=== PATIENT | female | born 1965 | race American Indian/Alaskan Native ===

== ENCOUNTER 2016-11-07 09:27 | Inpatient (IN) | payer SELFPAY ==
[2016-11-07 10:46] LABS: Basophils % (Auto) 0.3 % (0.0-1.8); Eosinophils % (Auto) 2.2 % (0.0-4.3); Hematocrit 44.5 % (30.3-42.9); Hemoglobin 14.3 gm/dl (10.1-14.3); Mean Corpuscular HGB Conc 32 % (30-34); Mean Corpuscular Hemoglobin 31 pg (28-32); Mean Corpuscular Volume 95 fl (79-97); Platelet Count 180 K/mm3 (140-440); Red Blood Count 4.66 M/mm3 (3.65-5.03); Red Cell Distribution Width 13.2 % (13.2-15.2); White Blood Count 5.4 K/mm3 (4.5-11.0)
[2016-11-07 11:04] LABS: Alanine Aminotransferase 10 units/L (7-56); Albumin 4.2 g/dL (3.9-5); Albumin/Globulin Ratio 1.3 %; Alkaline Phosphatase 85 units/L (35-129); Anion Gap 17 mmol/L; BUN/Creatinine Ratio 18.75; Blood Urea Nitrogen 15 mg/dL (7-17); Calcium 9.4 mg/dL (8.4-10.2); Carbon Dioxide 29 mmol/L (22-30); Chloride 98.4 mmol/L (98-107); Glucose 82 mg/dL (65-100); Potassium 3.9 mmol/L (3.6-5.0); Sodium 140 mmol/L (137-145); Total Protein 7.4 g/dL (6.3-8.2)
--- NOTE | 2016-11-07 14:56 | Emergency Department Report ---
ED Chest Pain HPI - General Chief Complaint: Chest Pain Stated Complaint: HIGH BP/HEADACHE Time Seen by Provider: 11/07/16 14:23 Source: patient Mode of arrival: Ambulatory Limitations: No Limitations - History of Present Illness Initial Comments: The patient is quite difficult to extract a history from. However, from what I can ascertain she was admitted in [place] one month ago for chest pain. She states that she was "called back because one doctor thought something was wrong with my chest but then another doctor didn't". It seems like she may have had a CT of her chest at that time. She has not had a cardiac catheterization. She drove from [place] to [place] 3 days ago. She states that since she drove here she has been having intermittent sharp pain of her left arm which occurs more than 5 times a day. She has also had chest pain which is sometimes associated with the arm pain but sometimes not perhaps 3 times a day. She states her episodes of pain did not last very long. When asked to quantify she seems to be saying a few minutes. She states that sometime she has associated symptoms like shortness of breath and nausea but sometimes not. At this time she is not having chest pain and arm pain nor shortness of breath. She denies any pleuritic pain or hemoptysis. She denies any leg pain or swelling. She has not been previously diagnosed with VTE. She states that she had a sister that had an MRI. She is noncompliant with her medicine for hypertension. MD Complaint: chest pain -: Gradual Onset: during rest Pain Location: left chest Pain Radiation: other (sometimes has left arm pain also) Severity: mild, moderate Quality: sharp Consistency: intermittent Improves With: nothing Worsens With: nothing re: nausea, dyspnea Other Symptoms: denies: cough, fever, syncope Treatments Prior to Arrival: none Aspirin use within the Past 7 Days: (0) No - Related Data On Oral Contraceptives: No Previous Rx's Medication Instructions Recorded Last Taken Type ALBUTEROL Inhaler [Proair] 1 puff IH Q4H PRN #1 inha 03/25/16 Unknown Rx Aspirin EC [Aspirin Enteric Coated 81 mg PO QDAY #30 tablet. 03/25/16 Unknown Rx TAB] amLODIPine [Norvasc] 5 mg PO DAILY #30 tab 03/25/16 Unknown Rx Allergies Allergy/AdvReac Type Severity Reaction Status Date / Time Penicillins Allergy Rash Verified 11/07/16 10:19 Heart Score - HEART Score History: Slightly suspicious EKG: Non-specific Age: 45-65 Risk factors: 1-2 risk factors Troponin: < normal limit HEART Score: 3 - Critical Actions Critical Actions: 0-3 pts:0.9-1.7%risk of adverse cardiac event.Candidate for discharge ED Review of Systems ROS: Stated complaint: HIGH BP/HEADACHE Other details as noted in HPI Constitutional: denies: chills, fever Eyes: denies: eye pain, eye discharge, vision change ENT: denies: ear pain, throat pain Respiratory: shortness of breath. denies: cough, wheezing Cardiovascular: chest pain. denies: palpitations Endocrine: no symptoms reported Gastrointestinal: nausea. denies: abdominal pain, diarrhea Genitourinary: denies: urgency, dysuria, discharge Musculoskeletal: denies: back pain, joint swelling, arthralgia Skin: denies: rash, lesions Neurological: denies: headache, weakness, paresthesias Psychiatric: denies: anxiety, depression Hematological/Lymphatic: denies: easy bleeding, easy bruising ED Past Medical Hx - Past Medical History Hx Hypertension: Yes Hx Asthma: Yes - Surgical History Past Surgical History?: No - Social History Smoking Status: Current Every Day Smoker Substance Use Type: Alcohol - Medications Home Medications: Home Medications Medication Instructions Recorded Confirmed Last Taken Type ALBUTEROL Inhaler [Proair] 1 puff IH Q4H PRN #1 inha 03/25/16 Unknown Rx Aspirin EC [Aspirin Enteric Coated 81 mg PO QDAY #30 tablet. 03/25/16 Unknown Rx TAB] amLODIPine [Norvasc] 5 mg PO DAILY #30 tab 03/25/16 Unknown Rx ED Physical Exam - General Limitations: No Limitations General appearance: alert, in no apparent distress - Head Head exam: Present: atraumatic, normocephalic - Eye Eye exam: Present: normal appearance. Absent: scleral icterus - ENT ENT exam: Present: mucous membranes moist - Neck Neck exam: Present: normal inspection. Absent: tenderness, meningismus - Respiratory Respiratory exam: Present: normal lung sounds bilaterally. Absent: respiratory distress - Cardiovascular Cardiovascular Exam: Present: regular rate, normal rhythm. Absent: systolic murmur, diastolic murmur, rubs, gallop - GI/Abdominal GI/Abdominal exam: Present: soft, normal bowel sounds. Absent: distended, tenderness, guarding, rebound, rigid - Extremities Exam Extremities exam: Present: normal inspection - Back Exam Back exam: Present: normal inspection - Neurological Exam Neurological exam: Present: alert, oriented X3, CN II-XII intact. Absent: motor sensory deficit - Psychiatric Psychiatric exam: Present: normal affect, normal mood - Skin Skin exam: Present: warm, dry, intact, normal color. Absent: rash ED Course Vital Signs 11/07/16 11/07/16 11/07/16 10:07 11:58 12:00 Temperature 97.8 F Pulse Rate 58 L 61 66 Respiratory 18 19 15 Rate Blood Pressure 156/92 O2 Sat by Pulse 98 99 99 Oximetry 11/07/16 11/07/16 11/07/16 12:30 13:00 13:30 Temperature Pulse Rate 55 L 58 L 56 L Respiratory 11 L 10 L 14 Rate Blood Pressure 159/81 159/81 147/85 O2 Sat by Pulse 98 99 100 Oximetry 11/07/16 11/07/16 14:00 14:36 Temperature Pulse Rate 56 L Respiratory 15 16 Rate Blood Pressure 170/98 O2 Sat by Pulse 98 99 Oximetry - Reevaluation(s) Reevaluation #1: Discussed with Dr. John. The patient will be admitted to the hospitalist service under Dr. John for further care and evaluation. Bridge orders have been placed. Dr. John will be seeing the patient this afternoon. 11/07/16 15:06 ED Medical Decision Making - Lab Data Result diagrams: 11/07/16 10:28 11/07/16 10:28 Laboratory Results - last 24 hr 11/07/16 11/07/16 11/07/16 10:28 10:28 10:28 WBC 5.4 RBC 4.66 Hgb 14.3 Hct 44.5 H MCV 95 MCH 31 MCHC 32 RDW 13.2 Plt Count 180 Lymph % (Auto) 51.7 H [place] % (Auto) 6.6 Eos % (Auto) 2.2 Baso % (Auto) 0.3 Lymph # 2.8 Forest # 0.4 Eos # 0.1 Baso # 0.0 Seg Neutrophils % 39.2 L Seg Neutrophils # 2.1 Sodium 140 Potassium 3.9 Chloride 98.4 Carbon Dioxide 29 Anion Gap 17 BUN 15 Creatinine 0.8 Estimated GFR > 60 BUN/Creatinine Ratio 18.75 Glucose 82 Calcium 9.4 Total Bilirubin 0.30 AST 14 ALT 10 Alkaline Phosphatase 85 Troponin T < 0.010 Total Protein 7.4 Albumin 4.2 Albumin/Globulin Ratio 1.3 11/07/16 12:56 WBC RBC Hgb Hct MCV MCH MCHC RDW Plt Count Lymph % (Auto) [place] % (Auto) Eos % (Auto) Baso % (Auto) Lymph # Forest # Eos # Baso # Seg Neutrophils % Seg Neutrophils # Sodium Potassium Chloride Carbon Dioxide Anion Gap BUN Creatinine Estimated GFR BUN/Creatinine Ratio Glucose Calcium Total Bilirubin AST ALT Alkaline Phosphatase Troponin T < 0.010 Total Protein Albumin Albumin/Globulin Ratio - EKG Data -: EKG Interpreted by Me EKG shows normal: sinus rhythm, axis, intervals, QRS complexes Rate: bradycardia - EKG Data Interpretation: nonspecific ST-T wave kimberly - Radiology Data interpreted by me: Chest x-ray shows no acute finding Critical care attestation.: If time is entered above; I have spent that time in minutes in the direct care of this critically ill patient, excluding procedure time. ED Disposition Clinical Impression: Uncontrolled hypertension Chest pain Qualifiers: Chest pain type: unspecified Qualified Code(s): R07.9 - Chest pain, unspecified Disposition: 09 OP ADMIT IP TO THIS HOSP Is pt being admited?: Yes Does the pt Need Aspirin: Yes Condition: Stable Instructions: Chest Pain (ED), Hypertension (ED) Referrals: PRIMARY CARE, [Primary Care Provider] - 3-5 Days Time of Disposition: 15:09
[2016-11-07] MEDS ORDERED: NITRO-BID 2% TP ONE ×2 (15:10→16:07)
[2016-11-07] MEDS ORDERED: BABY ASPIRIN PO ONE (15:10)
[2016-11-07 15:27] LABS: INR 0.94 (0.87-1.13)
[2016-11-07 15:28] LABS: Partial Thromboplastin Time 32.4 Sec. (24.2-36.6)
[2016-11-07 15:36] LABS: Alanine Aminotransferase 8 units/L (7-56); Albumin 4.2 g/dL (3.9-5); Albumin/Globulin Ratio 1.4 %; Alkaline Phosphatase 88 units/L (35-129); Total Protein 7.1 g/dL (6.3-8.2)
[2016-11-07 15:39] LABS: Bilirubin,Direct < 0.2 mg/dL (0-0.2); Bilirubin,Indirect 0.2 mg/dL
[2016-11-07] MEDS ORDERED: BABY ASPIRIN ONE (16:08)
--- NOTE | 2016-11-07 16:54 | History and Physical Report ---
History of Present Illness Date of examination: 11/07/16 Date of admission: 11/07/16 14:49 Chief complaint: Chest pain 10 days off and on History of present illness: UNGA:Chest pain off and on for 10 days.Patient is a very poor historian.Patient apparently had chest pain while in [place] and was evaluated in one of the hospitals.Not clear whether she had a stress test.Pain is 6 on 10.Retrosternal and dull in character.No SOB /Diaphoresis/Palpitations.Recent travel from [place] to [place] by car.No fever or chills.Non compliant with meds. - Past Medical History Hx Hypertension: Yes Hx Asthma: Yes - Surgical History Past Surgical History?: No - Social History Smoking Status: Current Every Day Smoker Substance Use Type: Alcohol - Medications Home Medications: Home Medications Medication Instructions Recorded Confirmed Last Taken Type ALBUTEROL Inhaler [Proair] 1 puff IH Q4H PRN #1 inha 03/25/16 Unknown Rx Aspirin EC [Aspirin Enteric Coated 81 mg PO QDAY #30 tablet. 03/25/16 Unknown Rx TAB] amLODIPine [Norvasc] 5 mg PO DAILY #30 tab 03/25/16 Unknown Rx Review of Systems Stated complaint: HIGH BP/HEADACHE Other details as noted in HPI Constitutional: denies: chills, fever Eyes: denies: eye pain, eye discharge, vision change ENT: denies: ear pain, throat pain Respiratory: shortness of breath. denies: cough, wheezing Cardiovascular: chest pain. denies: palpitations Endocrine: no symptoms reported Gastrointestinal: nausea. denies: abdominal pain, diarrhea Genitourinary: denies: urgency, dysuria, discharge Musculoskeletal: denies: back pain, joint swelling, arthralgia Skin: denies: rash, lesions Neurological: denies: headache, weakness, paresthesias Psychiatric: denies: anxiety, depression Hematological/Lymphatic: denies: easy bleeding, easy bruising Medications and Allergies Allergies Allergy/AdvReac Type Severity Reaction Status Date / Time Penicillins Allergy Rash Verified 11/07/16 10:19 Home Medications Medication Instructions Recorded Confirmed Last Taken Type ALBUTEROL Inhaler [Proair] 1 puff IH Q4H PRN #1 inha 03/25/16 Unknown Rx Aspirin EC [Aspirin Enteric Coated 81 mg PO QDAY #30 tablet. 03/25/16 Unknown Rx TAB] amLODIPine [Norvasc] 5 mg PO DAILY #30 tab 03/25/16 Unknown Rx Exam - Physical Exam Narrative exam: Lying comfortably - Constitutional Vitals: Temp Pulse Resp BP Pulse Ox 97.8 F 73 18 171/91 88 11/07/16 10:07 11/07/16 16:00 11/07/16 16:00 11/07/16 16:00 11/07/16 16:00 General appearance: Present: no acute distress, well-nourished - EENT Eyes: Present: PERRL ENT: hearing intact, clear oral mucosa - Neck Neck: Present: supple, normal ROM - Respiratory Respiratory effort: normal Respiratory: bilateral: CTA - Cardiovascular Heart rate: 57 Rhythm: regular Heart Sounds: Present: S1 & S2. Absent: rub, click - Extremities Extremities: no ischemia, pulses intact, pulses symmetrical, No edema Peripheral Pulses: within normal limits - Abdominal General gastrointestinal: Present: soft, non-tender, non-distended, normal bowel sounds Female genitourinary: Present: normal - Integumentary Integumentary: Present: clear, warm, dry - Musculoskeletal Musculoskeletal: gait normal, strength equal bilaterally - Psychiatric Psychiatric: appropriate mood/affect, intact judgment & insight - Neurologic Neurologic: CNII-XII intact, moves all extremities - Allied Health Allied health notes reviewed: nursing, case management Results - Labs CBC & Chem 7: 11/07/16 10:28 11/07/16 10:28 Labs: Laboratory Last Values WBC 5.4 K/mm3 (4.5-11.0) 11/07/16 10:28 RBC 4.66 M/mm3 (3.65-5.03) 11/07/16 10:28 Hgb 14.3 gm/dl (10.1-14.3) 11/07/16 10:28 Hct 44.5 % (30.3-42.9) H 11/07/16 10:28 MCV 95 fl (79-97) 11/07/16 10:28 MCH 31 pg (28-32) 11/07/16 10:28 MCHC 32 % (30-34) 11/07/16 10:28 RDW 13.2 % (13.2-15.2) 11/07/16 10:28 Plt Count 180 K/mm3 (140-440) 11/07/16 10:28 Lymph % (Auto) 51.7 % (13.4-35.0) H 11/07/16 10:28 [place] % (Auto) 6.6 % (0.0-7.3) 11/07/16 10:28 Eos % (Auto) 2.2 % (0.0-4.3) 11/07/16 10: Baso % (Auto) 0.3 % (0.0-1.8) 11/07/16 10: Lymph # 2.8 K/mm3 (1.2-5.4) 11/07/16 10: [place] # 0.4 K/mm3 (0.0-0.8) 11/07/16 10: Eos # 0.1 K/mm3 (0.0-0.4) 11/07/16 10: Baso # 0.0 K/mm3 (0.0-0.1) 11/07/16 10: Seg Neutrophils % 39.2 % (40.0-70.0) L 11/07/16 10: Seg Neutrophils # 2.1 K/mm3 (1.8-7.7) 11/07/16 10: PT 12.5 Sec. (12.2-14.9) 11/07/16 15:01 INR 0.94 (0.87-1.13) 11/07/16 15:01 APTT 32.4 Sec. (24.2-36.6) 11/07/16 15:01 D-Dimer 186.55 ng/mlDDU (0-234) 11/07/16 15:01 Sodium 140 mmol/L (137-145) 11/07/16 10:28 Potassium 3.9 mmol/L (3.6-5.0) 11/07/16 10:28 Chloride 98.4 mmol/L (98-107) 11/07/16 10:28 Carbon Dioxide 29 mmol/L (22-30) 11/07/16 10:28 Anion Gap 17 mmol/L 11/07/16 10:28 BUN 15 mg/dL (7-17) 11/07/16 10:28 Creatinine 0.8 mg/dL (0.7-1.2) 11/07/16 10:28 Estimated GFR > 60 ml/min 11/07/16 10:28 BUN/Creatinine Ratio 18.75 % 11/07/16 10:28 Glucose 82 mg/dL (65-100) 11/07/16 10:28 Calcium 9.4 mg/dL (8.4-10.2) 11/07/16 10:28 Total Bilirubin 0.40 mg/dL (0.1-1.2) 11/07/16 15:01 Direct Bilirubin < 0.2 mg/dL (0-0.2) 11/07/16 15:01 Indirect Bilirubin 0.2 mg/dL 11/07/16 15:01 AST 13 units/L (5-40) 11/07/16 15:01 ALT 8 units/L (7-56) 11/07/16 15:01 Alkaline Phosphatase 88 units/L (35-129) 11/07/16 15:01 Troponin T < 0.010 ng/mL (0.00-0.029) 11/07/16 12:56 NT-Pro-B Natriuret Pep 146.2 pg/mL (0-900) 11/07/16 15:01 Total Protein 7.1 g/dL (6.3-8.2) 11/07/16 15:01 Albumin 4.2 g/dL (3.9-5) 11/07/16 15:01 Albumin/Globulin Ratio 1.4 % 11/07/16 15:01 Short CBC 11/07/16 Range/Units 10:28 WBC 5.4 (4.5-11.0) K/mm3 Hgb 14.3 (10.1-14.3) gm/dl Hct 44.5 H (30.3-42.9) % Plt Count 180 (140-440) K/mm3 [facility] 11/07/16 10:28 Sodium 140 Potassium 3.9 Chloride 98.4 Carbon Dioxide 29 BUN 15 Creatinine 0.8 Glucose 82 Calcium 9.4 Cardiac Enzymes 11/07/16 11/07/16 11/07/16 Range/Units 10:28 12:56 16:32 Total Creatine Kinase (30-135) units/L CK-MB (CK-2) (0.0-4.0) ng/mL Troponin T < 0.010 < 0.010 < 0.010 (0.00-0.029) ng/mL 11/07/16 11/07/16 Range/Units 19:42 23:05 Total Creatine Kinase 70 65 (30-135) units/L CK-MB (CK-2) < 1.0 < 1.0 (0.0-4.0) ng/mL Troponin T < 0.010 < 0.010 (0.00-0.029) ng/mL Liver Function 11/07/16 11/07/16 Range/Units 10:28 15:01 Total Bilirubin 0.30 0.40 (0.1-1.2) mg/dL Direct Bilirubin < 0.2 (0-0.2) mg/dL AST 14 13 (5-40) units/L ALT 10 8 (7-56) units/L Alkaline Phosphatase 85 88 (35-129) units/L Albumin 4.2 4.2 (3.9-5) g/dL - Imaging and Cardiology EKG: report reviewed (57/min.Sinus Bradycardia) Assessment and Plan Advance Directives: Yes (Full code) VTE prophylaxis?: Chemical Plan of care discussed with patient/family: Yes - Patient Problems (1) Chest pain Current Visit: Yes Status: Acute Qualifiers: Chest pain type: unspecified Ischemic chest pain type: I Qualified Code(s ): R07.9 - Chest pain, unspecified Plan to address problem: Chest pain r/o PA protocol.Lexiscan in AM (2) Uncontrolled hypertension Current Visit: Yes Status: Chronic Plan to address problem: Patient non compliant.Added Losartan 100 mg po qd.Advised compliance. (3) Nicotine dependence Current Visit: Yes Status: Chronic Qualifiers: Nicotine product type: cigarettes Substance use status: S Plan to address problem: Nicoderm patch ordered (4) DVT prophylaxis Current Visit: Yes Status: Acute Plan to address problem: On Lovenox 40 mg sq qd
[2016-11-07] MEDS ORDERED: PROAIR IH PRN (16:55)
[2016-11-07] MEDS ORDERED: MILK OF MAGNESIA PO PRN (16:56)
[2016-11-07] MEDS ORDERED: DILAUDID IV PRN (16:56)
[2016-11-07] MEDS ORDERED: PERCOCET 5/325 PO PRN (16:56)
[2016-11-07] MEDS ORDERED: DULCOLAX PR PRN (16:56)
[2016-11-07] MEDS ORDERED: ZOFRAN IV PRN (16:56)
[2016-11-07] MEDS ORDERED: PROVENTIL IH PRN (17:10)
[2016-11-07] MEDS: HALFPRIN EC PO SCH (17:40)
[2016-11-07] MEDS: NORVASC PO SCH (17:40)
[2016-11-07] MEDS: D5NS 1,000 ML IV SCH (17:44)
[2016-11-07 20:41] LABS: Creatine Kinase 70 units/L (30-135)
[2016-11-07 20:43] LABS: Creatine Kinase MB < 1.0 ng/mL (0.0-4.0)
[2016-11-07] MEDS: PEPCID PO SCH (21:44)
[2016-11-07 23:38] LABS: Creatine Kinase 65 units/L (30-135)
[2016-11-08 00:12] LABS: Creatine Kinase MB < 1.0 ng/mL (0.0-4.0)
[2016-11-08] MEDS: D5NS 1,000 ML IV SCH (05:53)
[2016-11-08] MEDS ORDERED: LEXISCAN IV ONE ×2 (08:08→08:19)
--- NOTE | 2016-11-08 09:05 | XRay Report ---
Single view chest: Compared to 05/26/15. History: Hypertension. Findings: Normal cardiomediastinal silhouette. Trachea is midline. No consolidation, pneumothorax or pleural effusion. Impression: No acute cardiopulmonary findings
[2016-11-08] MEDS ORDERED: TYLENOL ONE (09:06)
[2016-11-08] MEDS: TYLENOL PO PRN ×2 (09:08→16:54)
[2016-11-08] MEDS ORDERED: HABITROL TD SCH (10:00)
[2016-11-08] MEDS ORDERED: COZAAR PO SCH (10:00)
[2016-11-08] MEDS: NORVASC PO SCH (11:03)
[2016-11-08] MEDS: HALFPRIN EC PO SCH (11:04)
[2016-11-08] MEDS: PEPCID PO SCH (11:04)
--- NOTE | 2016-11-08 15:31 | Discharge Summary ---
Providers - Providers Date of Admission: 11/07/16 14:49 Date of discharge: 11/08/16 Attending physician: RONALD STOREY Primary care physician: ENERGY AUDITOR Hospitalization Reason for admission: intermittent chest pain 10 days duration Condition: Stable Pertinent studies: Chest x-ray; no acute abnormality Stress test; preliminary report, abnormal, mild ischemia, medical management, follow-up cardiology office in one week Hospital course: 51-year-old -[place] female patient with a significant past medical history of hypertension and bronchial asthma was admitted through emergency room with intermittent chest pain of 10 days duration patient was initially evaluated and admitted to the hospital symptomatically managed underwent stress test which was abnormal with mild ischemia, preserved left ankle function according to the primary report given by cardiology, advised medical management outpatient follow up with cardiology in 1 week for further evaluation and management Today she is comfortable in bed no new complaints, vital signs are stable, physical examination done by me prior to discharge did not show any new changes Hemodynamically and clinically stable for discharge and does not need any further acute inpatient care Smoking cessation counseling done advised nicotine patch Final diagnosis; Chest pain secondary to gastroesophageal reflux disease Atypical chest pain Hypertension Bronchial asthma Ongoing tobacco use Disposition: DC-01 TO HOME OR SELFCARE Time spent for discharge: 32 min Core Measure Documentation - Palliative Care Palliative Care/ Comfort Measures: Not Applicable - Core Measures Any of the following diagnoses?: none Exam - Constitutional Vitals: Temp Pulse Resp BP Pulse Ox 98.0 F 60 20 167/90 98 11/08/16 13:43 11/08/16 13:43 11/08/16 13:43 11/08/16 13:43 11/08/16 13:43 General appearance: Present: no acute distress, well-nourished - EENT Eyes: Present: PERRL - Neck Neck: Present: supple, normal ROM - Respiratory Respiratory effort: normal Respiratory: bilateral: diminished, negative: rales, rhonchi, wheezing - Cardiovascular Rhythm: regular Heart Sounds: Present: S1 & S2 - Extremities Extremities: no ischemia, No edema - Abdominal General gastrointestinal: Present: soft, non-tender, non-distended, normal bowel sounds - Integumentary Integumentary: Present: clear, warm - Musculoskeletal Musculoskeletal: strength equal bilaterally - Psychiatric Psychiatric: appropriate mood/affect, cooperative - Neurologic Neurologic: CNII-XII intact, moves all extremities Plan Activity: no restrictions Diet: other (cardiac diet) Special Instructions: smoking cessation Additional Instructions: Strongly advised to quit tobacco use. History of chest pain or shortness of breath contact M.D. or go to the emergency room Follow up with: PRIMARY CARE, [Primary Care Provider] - 3-5 Days DANY ANDERSON MD [Staff Physician] - 7 Days Prescriptions: amLODIPine [Norvasc] 10 mg PO DAILY #30 tab Famotidine [Pepcid] 20 mg PO BID #30 tablet Losartan [Cozaar] 100 mg PO QDAY #30 tablet Nicotine [Habitrol] 21 mg TD QDAY #30 patch oxyCODONE /ACETAMINOPHEN [Percocet 5/325 mg] 1 tab PO QHS PRN #7 tablet PRN Reason: Pain, Moderate (4-6)
[2016-11-08] MEDS: APRESOLINE IV ONE ×2 (16:52→17:14)
[2016-11-08] MEDS ORDERED: APRESOLINE PO ONE (17:01)
[2016-11-08 18:45] VITALS: BP 156/79
--- NOTE | 2016-11-09 01:38 | Treadmill Report ---
THALLIUM REPORT REASON FOR STUDY: Chest pain. IMAGING PROTOCOL: The patient received 4 mCi of Thallium 201 for rest imaging and 26 mCi of technetium-99 Tetrofosmin for stress imaging. Imaging for all procedures was completed 30-90 minutes following the initial injection of Technetium 99m Tetrofosmin. SPECT imaging in the 180 degree arc was performed in the right anterior oblique projection. Computerized reconstruction of the images was performed for analysis. NUCLEAR IMAGING RESULTS: Technically limited study due to soft tissue attenuation artifact. Normal left ventricular cavity size with no change from stress to rest. Distribution of radionuclide within the left ventricle revealed a medium size area of photo-induction involving the apex. The degree of photo-induction is moderate. Rest imaging does not show any significant improvement in this defect. In addition, that is a small to medium size area of photo-induction involving the inferior wall. The degree of photo-induction is moderate. Rest imaging showed partial improvement in this defect. Gated SPECT imaging revealed normal global LV systolic function with no significant wall motion abnormalities. The calculated left ventricular ejection fraction is 67%. IMPRESSION: Technically limited study. Medium sized fixed apical defect. Small to medium size, partially reversible inferior wall defect. Normal global LV systolic function with no significant wall motion abnormalities. EF 67%. 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 In addition, there is suggestion of a small area of prior infarction with mild residual ischemia in the right coronary artery territory. JOB# [id number] [facility]/NTS
--- NOTE | 2016-11-09 01:46 | Treadmill Report ---
LEXISCAN STRESS TEST REPORT REASON FOR STUDY: Chest pain. STRESS TEST PROTOCOL: The patient received 0.4 mg of Lexiscan intravenously over 10 seconds. Tc-99m tetrofosmin was subsequently injected. Baseline EKG, sinus bradycardia. Lexiscan EKG, she developed anterolateral T-wave abnormalities. No chest pain. No arrhythmias. IMPRESSION: Nondiagnostic due to nonspecific EKG abnormalities. Nuclear imaging report to follow. [facility]# [id number] AGO/NTS
== END 2016-11-08 19:26 | disposition home or self-care (01) | DRG 392 ==
LOC: ED 09:27 → 4A 14:49
PROVIDERS: ADMIT Internal Medicine; ATTEND Internal Medicine
DX: K21.9 Gastro-esophageal reflux disease without esophagitis (principal); I10 Essential (primary) hypertension; F17.210 Nicotine dependence, cigarettes, uncomplicated; J45.909 Unspecified asthma, uncomplicated; Z88.0 Allergy status to penicillin; Z91.14 Patient's other noncompliance with medication regimen
CPT/HCPCS: 36415; 71010; 78452; 80053; 80074; 82550; 82553; 83880; 84484; 85025; 85379; 85610; 85730; 93005; 93010; 93017; 99285; 99406; A9502; J0360; J1170; J2785; J7042